=== PATIENT | female | born 1965 | race Native Hawaiian/Other Pacific Islander ===

== ENCOUNTER 2017-02-14 11:53 | Outpatient (CLI) | payer BC ==
[2017-02-14 12:39] LABS: PLATELET COUNT 237 K/uL (152-353)
[2017-02-14 13:16] LABS: POTASSIUM 3.9 mmol/L (3.6-5.2)
== END 2017-02-14 19:05 | disposition home or self-care (01) ==
LOC: LABW 11:53
PROVIDERS: Internal Medicine
DX: E04.8 Other specified nontoxic goiter (principal); R59.1 Generalized enlarged lymph nodes; R53.83 Other fatigue; R63.5 Abnormal weight gain; E78.4 Other hyperlipidemia; R73.9 Hyperglycemia, unspecified
CPT/HCPCS: 36415; 80053; 80061; 83036; 84439; 84443; 85027; 86039

== ENCOUNTER 2017-03-25 20:19 | Emergency (ER) | payer OTHER ==
[~2017-03-25] VITALS: Ht 167.6 cm; Wt 99.8 kg
== END 2017-03-25 23:04 | disposition home or self-care (01) ==
LOC: ED 20:19
DX: S60.212A Contusion of left wrist, initial encounter (principal); S70.02XA Contusion of left hip, initial encounter; S80.02XA Contusion of left knee, initial encounter; W01.0XXA Fall on same level from slipping, tripping and stumbling without subsequent striking against object, initial encounter; Y92.239 Unspecified place in hospital as the place of occurrence of the external cause
CPT/HCPCS: 99283; J1885

== ENCOUNTER 2017-03-27 15:08 | Outpatient (CLI) | payer OTHER | END 2017-03-27 16:10 | disposition home or self-care (01) | LOC: RAD 15:08 | DX: M25.531 Pain in right wrist (principal); M25.512 Pain in left shoulder ==

== ENCOUNTER 2017-04-20 08:53 | Outpatient (CLI) | payer OTHER | END 2017-04-20 22:31 | disposition home or self-care (01) | LOC: MRI 08:53 | DX: M25.512 Pain in left shoulder (principal); M25.562 Pain in left knee ==

== ENCOUNTER 2017-08-23 13:21 | Outpatient (CLI) | payer BC ==
[2017-08-23 13:41] LABS: PLATELET COUNT 250 K/uL (152-353)
== END 2017-08-23 21:41 | disposition home or self-care (01) ==
LOC: LABW 13:21
PROVIDERS: Nurse Practitioner Family
DX: R42 Dizziness and giddiness (principal); R73.09 Other abnormal glucose
CPT/HCPCS: 36415; 80053; 83036; 85027

== ENCOUNTER 2018-05-16 10:05 | Outpatient (CLI) | payer BC | END 2018-05-16 22:06 | disposition home or self-care (01) | LOC: MAMMO 10:05 | DX: Z12.31 Encounter for screening mammogram for malignant neoplasm of breast (principal) ==

== ENCOUNTER 2018-11-19 12:50 | Outpatient (CLI) | payer BC | END 2018-11-20 05:53 | disposition home or self-care (01) | LOC: RAD 12:50 | DX: M25.571 Pain in right ankle and joints of right foot (principal) ==

== ENCOUNTER 2019-01-07 16:48 | Outpatient (CLI) | payer BC ==
[2019-01-07] MEDS ORDERED: ASA LOW DOSE81 MG PO (17:33)
[2019-01-07] MEDS ORDERED: ALBUTEROL0.083 % INH (17:33)
[2019-01-07] MEDS ORDERED: CO Q 10100 MG PO (17:34)
[2019-01-07] MEDS ORDERED: CITALOPRAM20 M1 PO (17:34)
[2019-01-07] MEDS ORDERED: ALLERCLEAR10 MG PO (17:37)
[2019-01-07] MEDS ORDERED: IBU800 MG PO (17:37)
[2019-01-07] MEDS ORDERED: HYZAAR1 TA1 PO (17:39)
[2019-01-07] MEDS ORDERED: MULT VITAMI1 (17:39)
[2019-01-07] MEDS ORDERED: ALBU0.5N13 INH (17:41)
== END 2019-01-07 16:51 | disposition short-term general hospital (02) ==
LOC: AMB 16:48
DX: R07.89 Other chest pain (principal); R42 Dizziness and giddiness
CPT/HCPCS: A0425; A0427

== ENCOUNTER 2019-01-07 17:03 | Emergency (ER) | payer BC ==
[~2019-01-07] VITALS: Ht 170.2 cm; Wt 104.3 kg
[2019-01-07 17:27] LABS: PLATELET COUNT 238 K/uL (152-353)
[2019-01-07] MEDS ORDERED: ASA LOW DOSE81 MG PO (17:33)
[2019-01-07] MEDS ORDERED: ALBUTEROL0.083 % INH (17:33)
[2019-01-07] MEDS ORDERED: CO Q 10100 MG PO (17:34)
[2019-01-07] MEDS ORDERED: CITALOPRAM20 M1 PO (17:34)
[2019-01-07 17:36] LABS: POTASSIUM 3.5 mmol/L (3.6-5.2); SODIUM 142 mmol/L (136-145)
[2019-01-07] MEDS ORDERED: IBU800 MG PO (17:37)
[2019-01-07] MEDS ORDERED: ALLERCLEAR10 MG PO (17:37)
[2019-01-07] MEDS ORDERED: MULT VITAMI1 (17:39)
[2019-01-07] MEDS ORDERED: HYZAAR1 TA1 PO (17:39)
[2019-01-07] MEDS ORDERED: ALBU0.5N13 INH (17:41)
[2019-01-07 17:59] LABS: PARTIAL THROMBOPLASTIN TIME 23.3 SECONDS (24.5-33.6)
[2019-01-07 20:08] VITALS: BP 145/85; TEMP 97.1
== END 2019-01-07 20:20 | disposition home or self-care (01) ==
LOC: ED 17:03
PROVIDERS: Student in an Organized Health Care Education/Training Program
DX: R07.89 Other chest pain (principal)
CPT/HCPCS: 80048; 83735; 83880; 84484; 85027; 85610; 85730; 93005; 96374; 99284; J2270

== ENCOUNTER 2019-01-16 09:34 | Outpatient (CLI) | payer BC ==
[~2019-01-16 09:34] MED LIST: ALBU0.5N13 INH; ALBUTEROL0.083 % INH; ALLERCLEAR10 MG PO; ASA LOW DOSE81 MG PO; CITALOPRAM20 M1 PO; CO Q 10100 MG PO; HYZAAR1 TA1 PO; IBU800 MG PO; MULT VITAMI1
== END 2019-01-16 20:28 | disposition home or self-care (01) ==
LOC: LABW 09:34
DX: R07.89 Other chest pain (principal)
CPT/HCPCS: 36415; 84436; 84443; 84480

== ENCOUNTER 2019-01-22 07:55 | Outpatient (CLI) | payer BC | END 2019-01-22 23:33 | disposition home or self-care (01) | LOC: NM 07:55 | DX: I10 Essential (primary) hypertension (principal); J32.9 Chronic sinusitis, unspecified | CPT/HCPCS: 93306; A9500 ==

== ENCOUNTER 2019-03-04 13:38 | Outpatient (CLI) | payer BC ==
[2019-03-04 13:53] LABS: PLATELET COUNT 225 K/uL (152-353)
== END 2019-03-04 19:18 | disposition home or self-care (01) ==
LOC: LABW 13:38
PROVIDERS: Specialist
DX: Z01.810 Encounter for preprocedural cardiovascular examination (principal); R07.2 Precordial pain; R93.1 Abnormal findings on diagnostic imaging of heart and coronary circulation
CPT/HCPCS: 36415; 80053; 85027

== ENCOUNTER 2019-04-11 06:01 | Outpatient (CLI) | payer BC | END 2019-04-11 19:24 | disposition home or self-care (01) | LOC: LAB 06:01 | PROVIDERS: Nurse Practitioner Adult Health | DX: I25.10 Atherosclerotic heart disease of native coronary artery without angina pectoris (principal); E78.2 Mixed hyperlipidemia; Z79.899 Other long term (current) drug therapy | CPT/HCPCS: 80061; 80076 ==

== ENCOUNTER 2019-05-13 08:05 | Outpatient (CLI) | payer BC | END 2019-05-13 20:09 | disposition home or self-care (01) | LOC: CT 08:05 | DX: R30.0 Dysuria (principal) ==

== ENCOUNTER 2019-07-03 00:08 | Outpatient (CLI) | payer BC | END 2019-07-03 21:14 | disposition home or self-care (01) | LOC: LAB 00:08 | PROVIDERS: Specialist | DX: E78.2 Mixed hyperlipidemia (principal); Z79.899 Other long term (current) drug therapy | CPT/HCPCS: 36415; 80061; 80076 ==

== ENCOUNTER 2019-08-28 15:12 | Outpatient (CLI) | payer BC | END 2019-08-28 20:58 | disposition home or self-care (01) | LOC: RAD 15:12 | DX: J20.8 Acute bronchitis due to other specified organisms (principal) ==

== ENCOUNTER 2019-10-21 10:12 | Outpatient (CLI) | payer BC ==
[2019-10-21 10:35] LABS: PLATELET COUNT 188 K/uL (152-353)
== END 2019-10-21 21:08 | disposition home or self-care (01) ==
LOC: LABW 10:12
PROVIDERS: Physician Assistant
DX: M35.9 Systemic involvement of connective tissue, unspecified (principal)
CPT/HCPCS: 36415; 81374; 84443; 85027; 85651; 86038; 86060; 86140; 86430; 86618

== ENCOUNTER 2019-10-31 10:10 | Outpatient (CLI) | payer BC | END 2019-10-31 21:51 | disposition home or self-care (01) | LOC: LAB 10:10 | DX: M35.9 Systemic involvement of connective tissue, unspecified (principal) | CPT/HCPCS: 36415; 81374 ==

== ENCOUNTER 2020-01-20 07:47 | Outpatient (CLI) | payer BC | END 2020-01-20 23:27 | disposition home or self-care (01) | LOC: LABW 07:47 | PROVIDERS: Nurse Practitioner Adult Health | DX: E78.2 Mixed hyperlipidemia (principal); Z79.899 Other long term (current) drug therapy | CPT/HCPCS: 36415; 80061; 80076 ==

== ENCOUNTER 2021-04-29 14:15 | Outpatient (CLI) | payer BC, OTHER | END 2021-04-29 19:17 | disposition home or self-care (01) | LOC: RAD 14:15 | PROVIDERS: ATTEND Nurse Practitioner Family | DX: U07.1 COVID-19 (principal) ==

== ENCOUNTER 2021-12-10 08:26 | Outpatient (CLI) | payer BC | END 2021-12-10 19:05 | disposition home or self-care (01) | LOC: MAMMO 08:26 | PROVIDERS: ATTEND Nurse Practitioner Family | DX: Z12.31 Encounter for screening mammogram for malignant neoplasm of breast (principal) ==

== ENCOUNTER 2022-03-02 09:02 | Outpatient (CLI) | payer BC | END 2022-03-02 19:09 | disposition home or self-care (01) | LOC: RAD 09:02 | PROVIDERS: ATTEND Nurse Practitioner Family | DX: E83.52 Hypercalcemia (principal); Z13.820 Encounter for screening for osteoporosis ==